=== PATIENT | male | born 1935 | race Caucasian/White ===

== ENCOUNTER 2022-09-03 12:36 | Outpatient (CLI) | payer MEDICARE, BC, SELFPAY ==
[2022-09-03 15:53] LABS: Ferritin* 92.2 ng/mL (17.9-464.0)
[2022-09-06 06:22] LABS: Zinc, Serum/Plasma 86.9 ug/dL (60.0-120.0)
== END 2022-09-03 12:37 | disposition home or self-care (01) ==
LOC: WOUND 12:37
PROVIDERS: PCP Family Medicine; Visit Provider Nurse Practitioner Family
DX: L89.150 Pressure ulcer of sacral region, unstageable (principal); L89.893 Pressure ulcer of other site, stage 3; E46 Unspecified protein-calorie malnutrition; E60 Dietary zinc deficiency
CPT/HCPCS: 36415; 72220; 82728; 84134; 84630; 97602; 99214

== ENCOUNTER 2022-09-10 13:20 | Outpatient (CLI) | payer MEDICARE, BC, SELFPAY | END 2022-09-10 13:21 | disposition home or self-care (01) | LOC: WOUND 13:20 | PROVIDERS: PCP Family Medicine; Visit Provider Nurse Practitioner Family | DX: L89.153 Pressure ulcer of sacral region, stage 3 (principal); L89.812 Pressure ulcer of head, stage 2; E60 Dietary zinc deficiency; E44.1 Mild protein-calorie malnutrition; Z68.21 Body mass index [BMI] 21.0-21.9, adult | CPT/HCPCS: 99212 ==